=== PATIENT | female | born 1975 | race African-American/Black ===

== ENCOUNTER 2016-08-08 22:52 | Emergency (ER) | payer OTHER ==
[~2016-08-08] VITALS: Ht 167.6 cm; Wt 77.1 kg
[~2016-08-08 22:52] MED LIST: ALBUTEROL0.09 MG/A2 IH; CLARITIN10 MG PO; Coumadin5 MG PO; ENOXAPARIN80 MG/0.2 SC; NKHM; PREDNISONE20 MG PO; TRAMADOL HCL50 MG PO; ZANTAC 150150 MG PO; ZITHROMAX Z PA250 MG PO
[2016-08-08] MEDS ORDERED: PHENTERMINE H37.5 M1 PO (23:17)
[2016-08-08] MEDS ORDERED: ERYTHROMYCIN OPH1 GM OPH (23:26)
== END 2016-08-08 23:46 | disposition home or self-care (01) ==
LOC: ED 22:52
DX: H00.014 Hordeolum externum left upper eyelid (principal); I10 Essential (primary) hypertension; M19.90 Unspecified osteoarthritis, unspecified site; Z86.73 Personal history of transient ischemic attack (TIA), and cerebral infarction without residual deficits; Z88.6 Allergy status to analgesic agent; Z79.899 Other long term (current) drug therapy

== ENCOUNTER 2018-04-06 11:54 | Emergency (ER) | payer OTHER ==
[~2018-04-06] VITALS: Ht 167.6 cm; Wt 77.1 kg
[~2018-04-06 11:54] MED LIST changes: +ERYTHROMYCIN OPH1 GM OPH; +PHENTERMINE H37.5 M1 PO
[2018-04-06] MEDS ORDERED: PREDNISONE50 MG PO (13:45)
[2018-04-06] MEDS ORDERED: ZITHROMAX250 MG PO (13:45)
[2018-04-06] MEDS ORDERED: Motrin,Rufen800 MG PO (13:45)
== END 2018-04-06 13:49 | disposition home or self-care (01) ==
LOC: ED 11:54
DX: J20.9 Acute bronchitis, unspecified (principal); Z88.6 Allergy status to analgesic agent; Z79.899 Other long term (current) drug therapy; Z79.2 Long term (current) use of antibiotics; Z90.710 Acquired absence of both cervix and uterus; Z86.718 Personal history of other venous thrombosis and embolism

== ENCOUNTER 2019-09-30 11:51 | Emergency (ER) | payer OTHER ==
[~2019-09-30] VITALS: Ht 167.6 cm; Wt 81.6 kg
[~2019-09-30 11:51] MED LIST changes: +Motrin,Rufen800 MG PO; +PREDNISONE50 MG PO; +ZITHROMAX250 MG PO
[2019-09-30 12:51] LABS: BASO % 0.2 % (0.0-1.0); EOS % 0.2 % (1.0-4.0); HEMATOCRIT 36.2 % (37.0-47.0); LYMPH # 1.5 10*3/uL (1.3-4.4); LYMPH % 28.7 % (27.0-41.0); MEAN CELL VOLUME 94.3 fl (81.0-99.0); MEAN CORPUSCULAR HGB 31.8 pg (27.0-31.0); MEAN CORPUSCULAR HGB CONC 33.7 g/dl (33.0-37.0); MEAN PLATELET VOLUME 9.8 fl (9.6-12.3); MONO # 0.4 10*3/uL (0.1-1.0); MONO % 6.9 % (3.0-9.0); NEUT # 3.2 10*3/uL (2.3-7.9); NEUT % 63.6 % (47.0-73.0); PLATELET COUNT AUTOMATED 213 10*3/uL (130-400); RED BLOOD COUNT 3.84 10*6/uL (4.10-5.10); RED CELL DISTRI WIDTH 13.7 % (0-14.5); WHITE BLOOD COUNT 5.1 10*3/uL (4.8-10.8)
[2019-09-30 13:13] LABS: BILIRUBIN NEGATIVE; BLOOD NEGATIVE (NEGATIVE); CLARITY CLOUDY (CLEAR); COLOR YELLOW (YELLOW); GLUCOSE NEGATIVE; KETONE NEGATIVE; PH 6.5 (5.0-9.0); SPECIFIC GRAVITY 1.025 (1.005-1.030)
[2019-09-30 13:14] LABS: LEUKO ESTERASE TRACE (NEGATIVE); NITRITE NEGATIVE (NEGATIVE); UROBILINOGEN 0.2 E.U./dl (0.2-1.0)
[2019-09-30 13:26] LABS: BACTERIA 3+; EPITHELIAL CELLS TNTC
[2019-09-30 13:39] LABS: ALBUMIN 3.8 gm/dl (3.1-4.5); ALKALINE PHOSPHATASE 55 U/L (45-117); BUN 11 mg/dl (7-24); CHLORIDE 105 mmol/L (98-107); CREATININE 0.92 mg/dL (0.55-1.02); POTASSIUM 4.1 mmol/L (3.5-5.1); SGOT/AST 13 IU/L (3-35); SGPT/ALT 30 U/L (12-78); SODIUM 138 mmol/L (136-145); TOTAL PROTEIN 7.4 gm/dL (6.4-8.2)
[2019-09-30] MEDS ORDERED: ZOFRAN4 MG PO (13:54)
== END 2019-09-30 13:57 | disposition home or self-care (01) ==
LOC: ED 11:51
PROVIDERS: Emergency Medicine
DX: R11.2 Nausea with vomiting, unspecified (principal); R42 Dizziness and giddiness; R06.02 Shortness of breath; M19.90 Unspecified osteoarthritis, unspecified site; Z20.828 Contact with and (suspected) exposure to other viral communicable diseases; Z88.6 Allergy status to analgesic agent; Z79.899 Other long term (current) drug therapy; Z86.718 Personal history of other venous thrombosis and embolism

== ENCOUNTER 2020-07-23 14:17 | Emergency (ER) | payer OTHER ==
[~2020-07-23] VITALS: Wt 83.9 kg
[~2020-07-23 14:17] MED LIST changes: +ZOFRAN4 MG PO
== END 2020-07-23 14:39 | disposition left against medical advice (07) ==
LOC: ED 14:17
DX: I74.9 Embolism and thrombosis of unspecified artery (principal); Z53.21 Procedure and treatment not carried out due to patient leaving prior to being seen by health care provider